=== PATIENT | female | born 1975 | race African-American/Black ===

== ENCOUNTER 2024-04-19 10:13 | Emergency (ER) | payer MEDICAID ==
[~2024-04-19] VITALS: Ht 160 cm; Wt 81.8 kg
[2024-04-19 11:38] LABS: BASOPHILS % (AUTO) 0.2 % (0-1); EOSINOPHILS # (AUTO) 0.1 X10'3 (0-0.9); EOSINOPHILS % (AUTO) 0.5 % (0-6); HEMATOCRIT 41.2 % (35.0-45.0); LYMPHOCYTES # (AUTO) 1.3 X10'3 (1.1-4.8); MEAN CORPUSCULAR HEMOGLOBIN 32.3 PG (27.0-31.0); MEAN PLATELET VOLUME 9.9 FL (7.4-10.4); MONOCYTES # (AUTO) 1.3 X10'3 (0-0.9); NEUTROPHILS # (AUTO) 18.3 X10'3 (1.8-7.7); NEUTROPHILS % (AUTO) 87.3 % (42-75); PLATELET COUNT 254 X10'3 (140-440); RED BLOOD COUNT 4.34 X10'6 (4.20-5.60); RED CELL DISTRIBUTION WIDTH 13.4 % (11.5-14.5)
[2024-04-19 11:57] LABS: ALANINE AMINOTRANSFERASE 21 U/L (12-78); ALBUMIN 3.6 G/DL (3.4-5.0); ALBUMIN/GLOBULIN RATIO 0.8 (1.1-1.5); ALKALINE PHOSPHATASE 131 IU/L (46-116); ANION GAP 8 (8-16); ASPARTATE AMINO TRANSFERASE 6 U/L (10-37); BILIRUBIN,TOTAL 1.1 MG/DL (0.1-1.0); BLOOD UREA NITROGEN 9 MG/DL (7-18); BUN/CREATININE RATIO 8.7 (10.0-20.0); CALCIUM 9.4 MG/DL (8.5-10.1); CHLORIDE 99 MMOL/L (99-107); CREATININE 1.03 MG/DL (0.40-0.90); GLUCOSE 115 MG/DL (70-104); LIPASE 19 U/L (16-77); POTASSIUM 4.1 MMOL/L (3.5-5.1); SODIUM 134 MMOL/L (135-145); TOTAL CARBON DIOXIDE 26.6 MMOL/L (24-32); TOTAL PROTEIN 8.1 G/DL (6.4-8.2); eCRCL 56 ML/MIN; eGFR 57 ML/MIN
[2024-04-19] MEDS: ondansetron/PF 4mg/2ml inj IV ONE (14:31)
[2024-04-19] MEDS: HYDROmorphone 1 mg/ml syringe IV ONE ×3 (14:31→19:56)
[2024-04-19] MEDS: normal saline 1000ml 1,000 ML IV ONE (14:32)
[2024-04-19] MEDS ORDERED: ALB0.5UD NEB (14:38)
[2024-04-19 15:39] LABS: URINE HCG NEGATIVE (NEG)
[2024-04-19 15:40] LABS: BILIRUBIN,URINE NEGATIVE (Neg); CLARITY,URINE SLIGHTLY CLOUDY (Clear); COLOR,URINE YELLOW (Yellow); GLUCOSE, URINE NEGATIVE (Neg); KETONES,URINE 40 mg/dl (Neg); LEUKOCYTE ESTERASE ,URINE NEGATIVE (Neg); NITRITES, URINE NEGATIVE (Neg); OCCULT BLOOD,URINE SMALL (Neg); PROTEIN,URINE 30 mg/dl (Neg); UROBILINOGEN,URINE 0.2 E.U/dL (0.2-1.0)
[2024-04-19 15:45] LABS: UA COLLECTION TYPE CLN CATCH MIDSTREAM
[2024-04-19] MEDS ORDERED: iohexol 300mg/ml 100ml inj. ONE (15:47)
[2024-04-19 15:49] LABS: BACTERIA,URINE 1+ /HPF (Neg); MUCUS STRANDS FEW /LPF (Neg); SQUAMOUS EPITHELIAL CELL,UR FEW /LPF (FEW); TRANSITIONAL EPI CELLS,URINE FEW /HPF; WBC,URINE 0-4 /HPF (0-4)
[2024-04-19 15:50] LABS: AMORPHOUS PHOSPHATES 2+; FINE GRANULAR CAST 0-3 /LPF (NEGATIVE); HYALINE CASTS 0-3 /LPF (NEGATIVE)
[2024-04-20] MEDS: HYDROmorphone 1 mg/ml syringe IV ONE (00:15)
[2024-04-20] MEDS: normal saline 1000ml 1,000 ML IV ONE (00:19)
[2024-04-20] MEDS: acetaminophen 1,000mg/100ml IV 100 ML IV ONE (00:19)
[2024-04-20] MEDS: CefTRIAXone/D5W-Rocephin 1gm 50 ML IV ONE (00:33)
[2024-04-20 01:01] VITALS: BP 155/97; PULSE 127; RESP 21; TEMP 99.7; O2SAT 97
== END 2024-04-20 01:13 | disposition hospice, inpatient (51) ==
LOC: ER 10:13
DX: R10.84 Generalized abdominal pain (principal); R11.10 Vomiting, unspecified; R50.9 Fever, unspecified; Z88.0 Allergy status to penicillin
CPT/HCPCS: 36415; 74177; 76830; 76856; 80053; 81001; 81025; 83690; 84702; 85025; 93976; 96361; 96365; 96375; 96376; 99291; 99292; J0131; J0696; J1171; J2405; J7030; Q9967; 99285

== ENCOUNTER 2025-02-24 23:35 | Emergency (ER) | payer MEDICAID ==
[~2025-02-24] VITALS: Ht 160 cm; Wt 88.6 kg
[~2025-02-24 23:35] MED LIST: ALB0.5UD NEB
[2025-02-24 23:37] VITALS: TEMP 97.6
[2025-02-25 00:17] LABS: MEAN PLATELET VOLUME 9.7 FL (7.4-10.4); RED CELL DISTRIBUTION WIDTH 13.6 % (11.5-14.5)
--- NOTE | 2025-02-25 00:18 | Physician Documentation ---
History of Present Illness Chief Complaint: Abdominal Pain Stated Complaint: ABDOMINAL PAIN Time Seen by MD: 23:59 Mode of Arrival: POV HPI This is a pleasant 49-year-old female who presents for evaluation of infraumbilical abdominal pain that has been going on on and off for several months. She has a has been emergency gynecological surgery at [place] in May of this year for perforated IUD. She did have a port trocar placed through her belly button. Since then she noticed that her abdominal wall is weaker. Couple of months ago she noticed that she has a defect in her abdominal wall through which occasionally she gets a bulge protruding. It causes pain. She came in today because she wants to make sure that this is an umbilical hernia. She continues to pass flatus. Denies any nausea or vomiting. The particular palliating or aggravating factors were elicited with the pain. She never had a diagnosis of hernia in the past. She uses marijuana, occasionally using methamphetamines. Does not drink. Medication Reconciliation Allergies: Coded Allergies: amoxicillin (Verified Adverse Reaction, Intermediate, hallucinations, 04/19/24) Scheduled Albuterol Sulfate Nebs* (Proventil Nebs*), 1 VIAL NEB Q4H, (Reported) Review of Systems ROS 10 point review of systems was performed and unless noted above in HPI is negative for acute process/complaint. Physical Exam Vital Signs: Temperature: 97.6, Source: Temporal, Heart Rate: 104, Respiratory Rate: 16, BP: 161/105, Pulse Oximetry: 99, Weight: 88.600 Physical Exam GENERAL: Awake, alert, oriented, GCS 15, no apparent distress, non-toxic appear ing, answers questions, follows commands appropriately. Examined in bed 12. HEENT: Atraumatic, normocephalic, pupils equal, extraocular muscles intact, sclerae anicteric, mucus membranes moist, oropharynx is clear, no stridor. NECK: supple, full active range of motion, trachea midline, no thyromegaly, no lymphadenopathy, no JVD. CARDIOVASCULAR: regular rate/rhythm, no murmurs/gallops/rubs, Pulses are 2+ in all extremities and symmetric. Capillary refill less than 2 seconds. PULMONARY: Nonlabored, good air movement ,no respiratory distress, speaking in full sentences, clear to auscultation bilaterally, no wheezing, no ronchi, no rales, no accessory muscle use. GASTROINTESTINAL: Soft, non-tender, non-distended, normal active bowel sounds, no organomegaly, no pulsatile masses, no CVA tenderness. NEUROLOGIC: Lucid with normal mental status. Normal facial symmetry. Moves all extremities symmetrically and with purpose. No truncal ataxia. Speech is fluid without evidence of dysarthria or aphasia, no focal deficits appreciated. MUSCULOSKELETAL: There is full range of motion of all extremities. There is no joint pain or joint swelling or joint erythema. There is no muscle pain or tenderness or swelling. EXTREMITIES: warm, well-perfused, no cyanosis, no clubbing, no edema, no acute deformities. Skin: warm, dry, no rashes or lesions, no jaundice, no petechiae orpurpura. No ecchymosis. PSYCHIATRIC: Normal affect, normal insight, normal concentration. Focused exam: [She does have a an abdominal wall defect proximally 2 cm in diameter just below her umbilicus with a easily reducible contents of the hernia. No overlying skin changes, no crepitus.] Progress Results/Orders Results/Orders Orders - MARISOL KNOWLES DO Urinalysis, Cult If Indicated (02/24/25 23:42) Hcg, Ur Ql (02/24/25 23:42) Cbc/Diff (02/24/25 23:42) BMP (02/24/25 23:42) Lipase (02/24/25 23:42) CMP (02/24/25 23:42) Vital Signs 02/24/25 02/24/25 23:37 23:54 Temp 97.6 Pulse 104 Resp 16 16 B/P (MAP) 161/105 Pulse Ox 99 Laboratory Tests Test 02/25/25 00:01 CBC Comment Chemistry Comments Medical Decision Making Additional information obtaine: old records Findings Facility Status: ED Holds, [facility] process The plan was discussed with the patient, who demonstrates clear understanding of the plan and is in agreement with the plan unless otherwise noted in the chart. All questions have been answered, all concerns were addressed unless otherwise documented. I was available throughout their ED stay for frequent reassessment and questions. Differential Diagnoses (considered and possible or likely): [Differential diagnosis considered includes acute appendicitis, acute cholecystitis, pancr eatitis, gastritis, PUD, diverticulitis, mesenteric ischemia, abdominal aortic aneurysm, bowel obstruction, enteritis, colitis, fecal impaction, volvulus, IBS, inflammatory bowel disease, specific food intolerance, peritonitis, perforated viscous, malignancy, UTI, abscess, and abdominal pain NOS. Pelvic source of pain was also considered including endometritis, dysmenorrhea, ovarian cyst, ovarian torsion, PID, TOA, cervicitis, vaginitis, or uterine fibroid. History, physical exam, and workup exclude many of the more serious causes listed above. ] ??Differential Diagnoses (considered and unlikely, not requiring evaluation currently): [See above] MDM Data Please see HPI for the following: Independent Historians and external Records Review. Historian: [Patient] Independent Historians: ?[Record review] Medication Management: [Reviewed medication list] Social History and determinants: [Reviewed] Please see the body of the note for the following: Any independent interpretations of ECG, imaging studies. All vitals signs/haemodynamics, ordered tests were independently reviewed and interpreted by myself. Nursing triage complaint and vitals reviewed, additional nursing notes were revi ewed as available and I agree unless otherwise noted or documented in contradiction in the chart Vital Signs: Independently reviewed Labs: Independently interpreted Imaging: Independently interpreted Old Medical Records: Independently reviewed, see [facility] for relevant summary and information Pulse Oximetry: [97%] interpreted as [normal on room air] by me [Tele Tech: [Regular Rate, Regular rhythm, no ectopy, NSR] reviewed and interpreted by me] Additionally notably showing: [Hemodynamics reviewed. Slightly tachycardic, improves with the rest. No evidence of hypotension respiratory distress. CBC is normal, no leukocytosis, no anemia, normal platelets. 60% neutrophils. Chemistry is unremarkable. She is not . Lactic acid is barely detectable. This decreasing suspicion for strangulation. Imaging was obtained. CT shows fat containing infraumbilical hernia with a some mild inflammatory changes that could suggest incarceration of fat. It is once again easily reducible.] Tests considered but not ordered include: [Not applicable] Social Determinants of Health Impact: Patient was evaluated in [facility] [place] to healthcare due to below par ratio of patient to medical providers. [] Comorbid Conditions Impacting Present Evaluation and Care/Treatment: [None] Management Discussions with other Healthcare Providers: [] Treatment and Disposition Medication Management (Given or considered): [Patient declined pain medication]. See EMR for details Consideration for Hospitalization/Escalation/Deescalation of Care: Admission for observation has been considered, [however the patient is able to tolerate p.o., their symptoms are controlled, they are able to rely on oral medications, and their chief complaint/diagnosis can be managed on outpatient basis.] ?ED Course:?[Per Gabo Feliz, Whats New in the Management of Incarcerated Hernia, Journal of Gastrointestinal Surgery, Volume 24, Issue 12019, Pages 221-433, ISSN [id number], [email or web address]. Incarcerated fat containing hernias not an emergency, although may require surgical intervention to correct if it were not reducible. No clinical deterioration. The patient we will require follow-up with General surgery. Date: Feb 25, 2025 Time: 03:46 discussed the return precautions with the patient. She is able to reduce hernia on her own when lying flat. ] ?Shared decision making:?[Patient is hemodynamically stable for discharge home with follow with their primary care provider. [ ] Specific and cautious return precautions provided and discussed with full understanding. Any incidental findings were also discussed and follow up recommendations given. [] All questions answered. Patient/family were able to verbalize back return precautions. Patient/family agree to plan. Copies of imaging and laboratory studies were provided.] Code status:?FULL Please see the full Electronic Medical Record for full details of nursing documentation, medications list, other records of complete past medical history and conditions, vital signs, laboratory studies, and any radiologic study interpretations by radiologists. Portions of this note were completed using [employer] dictation software and as a result there may exist minor errors in spelling. I have reviewed elements of past family and social history and agree as included in note. Differential Dx:Considerations: AAA, Appendicitis, Bowel obstruction, Cholelithasis, Constipation, Gastritis/PUD, Gastroenteritis, Hernia, Ischemic bowel, Pancreatitis, Urinary tract infection Departure Disposition: 01 HOME / SELF CARE / HOMELESS Impression: Primary Impression: Umbilical hernia Condition: Improved Discharge Instructions: Umbilical Hernia, Adult Additional Instructions: You have an umbilical hernia. On the CT scan there is only intra-abdominal fat protruding through the abdominal wall defect. While this may be painful, it is not life-threatening. Nonetheless it is likely to require surgical repair. It is very important that you return to emergency department if you experiencing pain that she can not palliate with the medications provided, if you experienced nausea and vomiting, not passing gas. Return if you have any concerns whatsoever. As long as they have defect in the abdominal wall, not only fat can herniate through it but bowel. If bowel gets trapped, this can result in life-threatening condition. Departure Forms: Referrals: NO PRIMARY CARE PROVIDER (PCP) BRANNON MEDLEY MD 1 day Please follow-up with general surgeon as soon as possible to discuss potential surgical repair options for your umbilical hernia. Prescriptions Hydrocodone Bit/Acetaminophen 5/325 MG ([place] 5/325 MG) 5 Mg/325 Mg Tablet 1 TAB PO Q6H PRN for pain, #14 TAB Prov: MARISOL KNOWLES DO 02/25/25 Education Educated: Patient Educated regarding: diagnosis, treatment, prognosis, need for follow up Signature Scribe Signature: No scribe Attestation: Date: Feb 25, 2025 Time: 00:19 This note accurately reflects clinical decisions, work performed by myself, DO ELENI Delacruz NICHOLAS M DO Feb 25, 2025 00:18
[2025-02-25 00:23] LABS: CREATININE 1.08 MG/DL (0.40-0.90); TOTAL CARBON DIOXIDE 26.9 MMOL/L (24-32); eCRCL 53 ML/MIN; eGFR 66 ML/MIN
[2025-02-25] MEDS ORDERED: iohexol 300mg/ml 100ml inj. ONE (02:11)
--- NOTE | 2025-02-25 02:54 | RADIOLOGY REPORT ---
Exam: CT CT ABDOMEN PELVIS W/ IV CONTRAST History: infraumbilical pain COMPARISON: CT CT ABDOMEN PELVIS W/ IV CONTRAST on DOS: 04/19/24 Technique: Multidetector spiral CT of the abdomen and pelvis was performed from lung bases to pubic symphysis. Intravenous contrast was administered during this examination. Portal venous imaging was obtained. Axial, coronal and sagittal multiplanar reformats were performed by the technologist on a separate workstation. Radiation Dose : 1. Abdomen/Pelvis: CTDIvol 30.23 mGy, DLP 1386.13 mGy*cm. CONTRAST: Type of contrast: Omnipaque 300 Contrast injected: 100 ml Findings: Lung Bases: No acute or significant lung base finding. Normal heart size. No pleural or pericardial effusion. Liver: The liver is normal in size. No focal lesions. Normal hepatic vascular enhancement. Gallbladder and Biliary Tree: Unremarkable Spleen: Unremarkable Pancreas: The pancreas is normal in appearance without focal lesions or abnormal enhancement. Adrenal Glands: Unremarkable Kidneys: No hydronephrosis. Bladder: Unremarkable Bowel: The stomach is grossly normal in appearance. Small bowel and colon are normal in caliber and distribution. The appendix is not visualized; however, no secondary findings of acute appendicitis identified. Ascites: Absent Lymphadenopathy: No mesenteric, retroperitoneal or periportal lymphadenopathy. Abdominal Wall and Mesentery: Small fat containing infraumbilical hernia with hernia sac measuring 3.8 x 3.0 cm. Mild surrounding edema. No herniated bowel loops or obstruction.. Vasculature: The visualized abdominal aorta is normal in size and caliber. Abdominal and pelvic vessels demonstrate normal enhancement. Pelvic Organs: Unremarkable Musculoskeletal: No aggressive focal bony lesions, acute fractures or dislocation. IMPRESSION: Fat containing infraumbilical hernia with mild inflammatory changes which may suggest incarceration. Radiation optimization: All CT scans at this facility use at least one of these dose optimization techniques: automated exposure control mA and/or kV adjustment per patient size (includes targeted exams where dose is matched to clinical indication) or iterative reconstruction.
[2025-02-25 03:29] LABS: HCG SERUM QL NEGATIVE
[2025-02-25] MEDS ORDERED: HYDR-3965 PO (03:45)
[2025-02-25 04:03] VITALS: BP 145/94; PULSE 89; O2SAT 99
[2025-02-25 04:25] VITALS: RESP 17
[2025-02-25] MEDS: HYDROcodone/acetaminophen 5mg/325mg tablet PO ONE (04:25)
== END 2025-02-25 04:27 | disposition home or self-care (01) ==
LOC: ER 23:36
DX: K42.9 Umbilical hernia without obstruction or gangrene (principal); F15.90 Other stimulant use, unspecified, uncomplicated; F12.90 Cannabis use, unspecified, uncomplicated; Z88.1 Allergy status to other antibiotic agents; Z79.899 Other long term (current) drug therapy
CPT/HCPCS: 36415; 74177; 80053; 83605; 83690; 84703; 85025; 99285; Q9967